=== PATIENT | female | born 1960 | race Caucasian/White ===

== ENCOUNTER 2024-12-27 12:58 | Inpatient (IN) ==
[2024-12-27 13:55] LABS: Basophils # (Auto) 0.07 K/mcL (0.00-0.30); Basophils % (Auto) 0.8 % (0.0-2.0); Eosinophils # (Auto) 0 K/mcL (0.00-0.70); Eosinophils % (Auto) 0 % (0.0-7.0); Hematocrit 42.2 % (34.1-44.9); Hemoglobin 13.8 g/dL (11.2-15.7); Lymphocytes # (Auto) 0.26 K/mcL (1.50-4.80); Lymphocytes % (Auto) 2.9 % (15.5-49.0); Mean Cell Volume 91.1 fL (80.0-100.0); Mean Corpuscular HGB Conc 32.7 g/dL (31.0-36.0); Mean Platelet Volume 10.6 fL (8.8-12.5); Monocytes # (Auto) 0.24 K/mcL (0.10-0.90); Monocytes % (Auto) 2.6 % (1.0-12.0); Neutrophils % (Auto) 93.3 % (38.0-78.0); Platelet Count 177 K/mcL (140-440); RBC 4.63 M/mcL (3.59-5.38); Red Cell Distribution Width 17.5 % (11.5-14.5); WBC 9.1 K/mcL (4.5-11.0)
[2024-12-27 14:37] LABS: Blood Urea Nitrogen 9 mg/dL (8-23); Calcium 8.9 mg/dL (8.6-10.4); Carbon Dioxide 24 mmol/L (22-30); Chloride 96 mmol/L (96-108); Glomerular Filtration Rate 78; Glucose 159 mg/dL (70-105); Potassium 3.7 mmol/L (3.3-5.1); Sodium 133 mmol/L (133-145)
[2024-12-27] MEDS: 0.9 % SODIUM CHLORIDE 1,000 ML IV ONE (14:43)
[2024-12-27 15:55] LABS: C-Reactive Protein 5.51 mg/dL (0.03-0.80)
[2024-12-27] MEDS ORDERED: DIAZEPAM 10 MG/2 ML SYRINGE IV PRN (16:29)
[2024-12-27] MEDS ORDERED: SENNOSIDES 1 TABLET PO PRN (16:29)
[2024-12-27] MEDS ORDERED: METOCLOPRAMIDE 10 MG/2 ML VIAL IV PRN (16:29)
[2024-12-27] MEDS ORDERED: ACETAMINOPHEN 325 MG TABLET PO PRN (16:29)
[2024-12-27] MEDS ORDERED: POLYETHYLENE GLYCOL 3350 17 GM PACKET PO PRN (16:29)
[2024-12-27] MEDS ORDERED: POTASSIUM CHLORIDE 20 MEQ TABLET PO PRN ×2 (16:29)
[2024-12-27] MEDS ORDERED: POTASSIUM CHLORIDE 40 MEQ in DEXTROSE 5% IN WATER 500 ML IV PRN (16:29)
[2024-12-27] MEDS ORDERED: MAGNESIUM SULFATE 2 GM/50 ML BAG IV PRN (16:29)
[2024-12-27] MEDS ORDERED: ONDANSETRON 4 MG/2 ML VIAL IV PRN (16:29)
[2024-12-27] MEDS: IPRATROPIUM/ALBUTEROL 3 ML AMPUL.NEB NEB PRN (16:50)
[2024-12-27] MEDS: AZITHROMYCIN 500 MG in DEXTROSE 5% IN WATER 250 ML IV SCH (17:58)
[2024-12-27] MEDS ORDERED: AZITHROMYCIN 500 MG in DEXTROSE 5% IN WATER 250 ML IV SCH (18:00)
[2024-12-27] MEDS ORDERED: HYDROcodone/APAP 10/325MG TABLET PO PRN (18:34)
[2024-12-27] MEDS: BUDESONIDE 0.5 MG/2 ML AMPUL.NEB NEB SCH (19:10)
[2024-12-27] MEDS: IPRATROPIUM/ALBUTEROL 3 ML AMPUL.NEB NEB SCH (19:10)
[2024-12-27] MEDS: AZITHROMYCIN 500 MG in 0.9 % SODIUM CHLORIDE 250 ML IV SCH (19:31)
[2024-12-27] MEDS: DOCUSATE SODIUM 100 MG CAPSULE PO SCH (19:41)
[2024-12-27] MEDS: CYCLOBENZAPRINE 10 MG TABLET PO SCH (19:41)
[2024-12-27] MEDS: SUCRALFATE 1 GM TABLET PO SCH (20:51)
[2024-12-27] MEDS: methylPREDNISolone SOD SUCC 125 MG/2 ML VIAL IV SCH (20:51)
[2024-12-27] MEDS: ALPRAZolam 0.25 MG TABLET PO PRN (20:52)
[2024-12-27] MEDS: 0.9 % SODIUM CHLORIDE 10 ML SYRINGE IV SCH (20:52)
[2024-12-28 06:10] LABS: Basophils # (Auto) 0.05 K/mcL (0.00-0.30); Basophils % (Auto) 0.4 % (0.0-2.0); Eosinophils # (Auto) 0 K/mcL (0.00-0.70); Eosinophils % (Auto) 0 % (0.0-7.0); Hematocrit 42.9 % (34.1-44.9); Hemoglobin 14.1 g/dL (11.2-15.7); Lymphocytes # (Auto) 0.37 K/mcL (1.50-4.80); Lymphocytes % (Auto) 3.1 % (15.5-49.0); Mean Cell Volume 90.9 fL (80.0-100.0); Mean Corpuscular HGB Conc 32.9 g/dL (31.0-36.0); Mean Platelet Volume 11.3 fL (8.8-12.5); Monocytes % (Auto) 5.1 % (1.0-12.0); Platelet Count 186 K/mcL (140-440); RBC 4.72 M/mcL (3.59-5.38); Red Cell Distribution Width 17.1 % (11.5-14.5); WBC 11.9 K/mcL (4.5-11.0)
[2024-12-28 06:32] LABS: ALT/SGPT 13 U/L (<40); AST/SGOT 27 U/L (<32); Albumin 3.8 gm/dL (3.2-5.2); Albumin/Globulin Ratio 1.5 (1.0-2.3); Alkaline Phosphatase 86 U/L (39-117); Bilirubin,Direct < 0.2 mg/dL (0-0.3); Bilirubin,Total 0.3 mg/dL (0.1-1.0); Blood Urea Nitrogen 11 mg/dL (8-23); Calcium 8.9 mg/dL (8.6-10.4); Carbon Dioxide 26 mmol/L (22-30); Chloride 99 mmol/L (96-108); Globulin 2.6 gm/dL (2.2-3.7); Glomerular Filtration Rate 96; Glucose 127 mg/dL (70-105); Lactate Dehydrogenase 244 U/L (135-225); Phosphorous 3.7 mg/dL (2.5-4.5); Potassium 4.6 mmol/L (3.3-5.1); Sodium 134 mmol/L (133-145); Triglycerides 72 mg/dL (<150); Uric Acid 3.3 mg/dL (2.5-8.0)
[2024-12-28] MEDS: PANTOPRAZOLE 40 MG TABLET PO SCH (07:41)
[2024-12-28] MEDS: ROFLUMILAST 250 MCG PO SCH (09:29)
[2024-12-28] MEDS: MIRABEGRON 25 MG TAB.ER.24H PO SCH (09:29)
[2024-12-28] MEDS: ENOXAPARIN 40 MG/0.4 ML SYRINGE SQ SCH (09:29)
[2024-12-28] MEDS: BENZONATATE 100 MG CAPSULE PO SCH (10:35)
[2024-12-28] MEDS: NICOTINE 14 MG PATCH TOPICAL SCH (10:35)
[2024-12-28] MEDS ORDERED: DOXYCYCLINE 100 MG in DEXTROSE 5% IN WATER 100 ML IV SCH (11:00)
[2024-12-28] MEDS: methylPREDNISolone SOD SUCC 125 MG/2 ML VIAL IV SCH (15:54)
[2024-12-28] MEDS: BENZONATATE 100 MG CAPSULE PO PRN (21:04)
[2024-12-28] MEDS: DOXYCYCLINE 100 MG in DEXTROSE 5% IN WATER 100 ML IV SCH (21:05)
[2024-12-29 06:32] LABS: Blood Urea Nitrogen 18 mg/dL (8-23); Calcium 9.3 mg/dL (8.6-10.4); Carbon Dioxide 29 mmol/L (22-30); Chloride 99 mmol/L (96-108); Glomerular Filtration Rate 92; Glucose 126 mg/dL (70-105); Potassium 4.5 mmol/L (3.3-5.1); Sodium 138 mmol/L (133-145)
[2024-12-29] MEDS: NYSTATIN 500,000 UNITS/5 ML ORAL.SUSP SSW SCH (12:36)
[2024-12-29] MEDS: CYCLOBENZAPRINE 10 MG TABLET PO PRN (21:01)
[2024-12-29] MEDS: methylPREDNISolone SOD SUCC 125 MG/2 ML VIAL IV SCH (21:02)
[2024-12-30] MEDS: methylPREDNISolone SOD SUCC 40 MG/ML VIAL IV SCH (08:51)
[2024-12-30] MEDS: predniSONE 20 MG TABLET PO SCH (21:34)
[2025-01-01 12:15] VITALS: TEMP 97.2
[2025-01-01 13:09] VITALS: O2SAT 92
== END 2025-01-01 14:23 | disposition home health service (06) | DRG 190 ==
LOC: ED 12:58 → MEDSUR 16:25
PROVIDERS: ADMIT Internal Medicine; ATTEND Internal Medicine